=== PATIENT | female | born 1955 | race Caucasian/White ===

== ENCOUNTER 2023-08-04 11:26 | Outpatient (AMB) | payer MEDICARE, SELFPAY ==
--- NOTE | 2023-08-04 11:43 | A.OFFVIS_ITS ---
Intake Intake Visit Reasons: discuss sx Intake Note: pt here to discuss surgery Associate Research Scientist Required: No Assessment & Plan Assessment & Plan (1) Spondylolisthesis, lumbar region: Code(s): M43.16 - Spondylolisthesis, lumbar region (2) Lumbar stenosis with neurogenic claudication: Code(s): M48.062 - Spinal stenosis, lumbar region with neurogenic claudication Plan Dear colleague Thank you for referring Saloni Ricks to the office today with a chief complaint of predominantly back pain. HPI: This 68-year-old female was previously seen in our [facility] office on 07/14/2022 for low back pain radiating down the right leg, including the hip to thigh she was diagnosed with a 2 level lumbar spondylolisthesis and spinal stenosis. She had a right L5 transforaminal epidural steroid injection done in March 2022, anti-inflammatory drugs and physical therapy without success. We of fered her surgery but she decided to hold off. She returns to our new location with similar complaints which have further increased in intensity. The back pain is severe and can go down both posterior thighs. She developed the following additional symptoms: The left leg is giving out and she notice numbness and tingling in her feet since a couple months. The back pain increases with prolonged walking or standing. Gardening produces a further increase in pain in lower back. The following conservative treatment options were tried without success antiinflammatories, tylenol, physical therapy, home meds this, cortisone shots. PMH: COPD, hypertension, rotator cuff repair, cholecystectomy, left L4-5 laminotomy. Medications: Lisinopril, omeprazole, albuterol Allergies: NKDA Physical Exam: Pleasant female. Lumbar spine is painful with flexion extension. There is pain on palpation. Negative hip mechanical testing. Negative straight leg raise the. No motor deficits or sensory deficits. No pathological reflexes Radiological Studies: MRI of the lumbar spine done at [facility] on 03/06/2022 shows L3-4 and L4-5 lumbar spondylolisthesis with moderate to severe central spinal stenosis at these levels. A standing x-ray with flexion-extension shows a grade 1-2 spondylolisthesis at L3-4 and a grade 2 L4-5 spondylolisthesis that increases with flexion and increases in the standing position compared to the MRI. Impression/Plan: This 68-year-old female is suffering from severe low back pain interfering with her daily activities and not responding to conservative treatments. The pain also radiates into her legs with intermittent numbness and giving out of her left leg. Imaging reviews an L3-4 and L4-5 lumbar spondylolisthesis with associated moderate to severe spinal canal stenosis. Unfortunately, the vasculature does not allow me to perform either an anterior or oblique approach. The L3-4 level is suitable for an oblique lumbar interbody fusion. Therefore I offered her an L3-4 oblique lumbar interbody fusion to address the L3-4 spondylolisthesis with an indirect decompression of the central canal and an L4-5 transforaminal lumbar interbody fusion to reduce the L4-5 spondylolisthesis followed by posterior instrumentation L3-L5. The procedure and complications were explained in detail. The patient wants to proceed. Thank you for allowing me to participate in your patients care. total time spent was 50 minutes in counseling ,coordination of plan, personal review of imaging, surgical decision making and subsequent plan Mino Monet MD, PhD Spine Fellowship Trained Neurosurgeon Director, [facility] Coding Level of Care Code New Pt Level 4 (41813) Diagnoses Spondylolisthesis, lumbar region M43.16 Lumbar stenosis with neurogenic claudication M48.062
== END 2023-08-04 12:31 | disposition home or self-care (01) ==
PROVIDERS: PCP Family Medicine; Visit Provider Neurological Surgery
DX: M43.16 Spondylolisthesis, lumbar region (principal); M48.062 Spinal stenosis, lumbar region with neurogenic claudication
CPT/HCPCS: 99204

== ENCOUNTER → 2023-08-04 11:26 | Outpatient (BNVA) | payer MEDICARE, SELFPAY | PROVIDERS: PCP Family Medicine; Visit Provider Neurological Surgery ==

== ENCOUNTER 2024-02-29 07:08 | Inpatient (IN) | payer MEDICARE, SELFPAY ==
[2023-12-20 14:11] VITALS: BP 137/74; PULSE 68; RESP 16; O2SAT 97; BMI 23.1
--- NOTE | 2023-12-20 14:33 | HO.ANESPROP2 ---
Documented by User: Brittany Roberts NP 12/27/23 15:22 HPI - Anesthesia Eval Consult details Narrative: CXR done at [facility]. Abnormal reading. Reviewed by Dr Ng and not cleared for surgery. Needs to be re-evaluated. Rescheduled to 02/29/24 68yo F for L3-4 Oblique Lumbar Interbody Fusion, L4-5 Transkambin Lumbar Interbody Fusion - 12/27/23 PCP clearance pending No CP/SOB with couple hour walk weekly, and hills with . Some PARKER with large hill, but does not require albuterol. COPD/Asthma - URI in Sep 2023. Resolved except slight congestion. Trelegy daily. Rare albuterol. Follows [facility]. Cleared 08/2023 prior to illness. Recent w/u by PCP for palpitations. ECHO and stress OK. Holter showed brief runs of SVT. Rare palpitations reported by patient. Referred to cardiology. Will get clearance from PCP GERD - well controlled with ppi Tramadol daily. Rare oxycodone PMFSH Active Problems Active Problems: All Active Problems (Updated 10/20/23 @ 09:04 by Mariangel Wooten RN) Lumbar stenosis with neurogenic claudication (Acute) Spondylolisthesis, lumbar region (Acute) Past Medical History Medical History (Updated 12/20/23 @ 15:28 by Nicki Singh RN) History of palpitations Hx of supraventricular tachycardia Pulmonary nodule HTN (hypertension) GERD (gastroesophageal reflux disease) Back pain COPD (chronic obstructive pulmonary disease) Asthma Family History Family history of problems with anesthesia: No Surgical History Surgical History (Updated 10/20/23 @ 09:00 by Mariangel Wooten RN) Hx of repair of left rotator cuff Hx of lumbar discectomy Hx of repair of right rotator cuff History of esophagogastroduodenoscopy (EGD) History of repair of anterior cruciate ligament of left knee Hx of cholecystectomy H/O colonoscopy History of Problems with Anesthesia: No Social History Social History Are you a primary critical care transport nurse to a significant other at home: No Do you presently have visiting nurse or other home services: No Patient Tobacco Use Status: Former Tobacco user Quit Date: 12/06/2023 Tobacco use type: Cigarette Second Hand Smoke Exposure: No Use of substances other than those prescribed or required for medical reasons: Yes Substance Use Frequency: Occasionally Have you been hit, kicked, punched, or otherwise hurt by someone within the past year? If so, by whom?: No Are you DNR?: No Advance Directives: No Advance Directives Information Provided: Yes Advance Directives on File: No Recently lost weight without trying: No Nutrition Risks: No Nutritional Risk Meds Allergies Allergy/AdvReac Type Severity Reaction Status Date / Time Seasonal Allergies Allergy Intermediate hayfever Verified 12/20/23 14:29 symptoms Sulfa (Sulfonamide Allergy Intermediate Rash Verified 12/20/23 14:29 Antibiotics) Home Medications Medication Instructions Recorded Confirmed Last Taken Type albuterol sulfate 90 mcg/actuation 2 puff inhalation Q4H PRN wheezing 10/20/23 10/20/23 Unknown History aerosol inhaler fluticasone fur. 100 mcg-umeclid 1 ea inhalation DAILY 10/20/23 10/20/23 Unknown History 62.5 mcg-vilant 25 mcg inhalat.powder (Trelegy Ellipta) lisinopril 10 mg tablet 10 mg PO DAILY 10/20/23 10/20/23 Unknown History magnesium oxide 500 mg capsule 500 mg PO DAILY 10/20/23 10/20/23 Unknown History omeprazole 20 mg capsule,delayed 20 mg PO DAILY 10/20/23 10/20/23 Unknown History release oxycodone 5 mg tablet 5 mg PO Q8H PRN Pain 10/20/23 10/20/23 Unknown History tramadol 50 mg tablet 50 mg PO Q6H PRN Pain 10/20/23 10/20/23 Unknown History varenicline 1 mg tablet 1 mg PO BID 10/20/23 10/20/23 Unknown History amlodipine 5 mg tablet 5 mg PO DAILY 12/20/23 12/20/23 Unknown History Exam Height,Weight and Vital Signs: Height 5 ft 6 in Weight 64.864 kg Last Vital Signs Pulse 68 12/20/23 14:11 Resp 16 12/20/23 14:11 BP 137/74 12/20/23 14:11 Pulse Ox 97 12/20/23 14:11 O2 Del Method Room Air 12/20/23 14:11 Narrative Narrative: EKG 10/2023 SR @ 67 ECHO 11/2023 Nml LV size and function, EF 65% Nml RV size and function Nml diastolic function Trace mitral regurg Nml PA pressure estimate Exercise stress 10/2023 1. EKG - baseline EKG showed SR with nonspecific ST-T wave abn. During exercise there were no ischemic EKG changes that met criteria. 2. SYMPTOMS - No chest pain 3. EXERCISE PHYSIOLOGY - average/good functional capacity for age. BP 136/84 at rest. BP 230/120 during exercise, BP 158/84 on d/c from stress lab 4. ARRYTHMIAS - isolated PVCs with 4 beat run of ventricular bigeminy Conclusion - there were no EKG changes suggestive of ischemia or symptoms concerning for angina Airway Loose/Missing/Broken Teeth: Yes (~#11 pulled recently, 1 x molar crowned lower right slightly loose) Heart: RRR Lungs: Dim throughout Assessment and Plan Assessment Anesthesia Assessment: Anesthesia Plan Discussed and PAT Visit Final Anesthetic Review Family History of Problems with Anesthesia: No History of Problems with Anesthesia: No Documented by User: Heri Penn MD 01/03/24 09:36 HPI - Anesthesia Eval Consult details Narrative: CXR done at [facility]. Abnormal reading. Reviewed by Dr Ng and not cleared for surgery. Needs to be re-evaluated. Rescheduled to 02/29/24. Thanks. 68yo F for L3-4 Oblique Lumbar Interbody Fusion, L4-5 Transkambin Lumbar Interbody Fusion - 12/27/23 PCP clearance pending No CP/SOB with couple hour walk weekly, and hills with . Some PARKER with large hill, but does not require albuterol. COPD/Asthma - URI in Sep 2023. Resolved except slight congestion. Trelegy daily. Rare albuterol. Follows [facility]. Cleared 08/2023 prior to illness. Recent w/u by PCP for palpitations. ECHO and stress OK. Holter showed brief runs of SVT. Rare palpitations reported by patient. Referred to cardiology. Will get clearance from PCP GERD - well controlled with ppi Tramadol daily. Rare oxycodone PMFSH Past Medical History Medical History (Updated 02/26/24 @ 15:28 by Nicki Singh RN) History of palpitations Hx of supraventricular tachycardia Pulmonary nodule HTN (hypertension) GERD (gastroesophageal reflux disease) Back pain COPD (chronic obstructive pulmonary disease) Asthma Surgical History Surgical History (Updated 10/20/23 @ 09:00 by Mariangel Wooten RN) Hx of repair of left rotator cuff Hx of lumbar discectomy Hx of repair of right rotator cuff History of esophagogastroduodenoscopy (EGD) History of repair of anterior cruciate ligament of left knee Hx of cholecystectomy H/O colonoscopy Social History Social History Are you a primary critical care transport nurse to a significant other at home: No Do you presently have visiting nurse or other home services: No Patient Tobacco Use Status: Former Tobacco user Quit Date: 12/06/2023 Tobacco use type: Cigarette Second Hand Smoke Exposure: No Use of substances other than those prescribed or required for medical reasons: Yes Substance Use Frequency: Occasionally Have you been hit, kicked, punched, or otherwise hurt by someone within the past year? If so, by whom?: No Are you DNR?: No Advance Directives: No Advance Directives Information Provided: Yes Advance Directives on File: No Recently lost weight without trying: No Nutrition Risks: No Nutritional Risk Meds Allergies Allergy/AdvReac Type Severity Reaction Status Date / Time Seasonal Allergies Allergy Intermediate hayfever Verified 12/20/23 14:29 symptoms Sulfa (Sulfonamide Allergy Intermediate Rash Verified 12/20/23 14:29 Antibiotics) Home Medications Medication Instructions Recorded Confirmed Last Taken Type albuterol sulfate 90 mcg/actuation 2 puff inhalation Q4H PRN wheezing 10/20/23 10/20/23 Unknown History aerosol inhaler fluticasone fur. 100 mcg-umeclid 1 ea inhalation DAILY 10/20/23 10/20/23 Unknown History 62.5 mcg-vilant 25 mcg inhalat.powder (Trelegy Ellipta) lisinopril 10 mg tablet 10 mg PO DAILY 10/20/23 10/20/23 Unknown History magnesium oxide 500 mg capsule 500 mg PO DAILY 10/20/23 10/20/23 Unknown History omeprazole 20 mg capsule,delayed 20 mg PO DAILY 10/20/23 10/20/23 Unknown History release oxycodone 5 mg tablet 5 mg PO Q8H PRN Pain 10/20/23 10/20/23 Unknown History tramadol 50 mg tablet 50 mg PO Q6H PRN Pain 10/20/23 10/20/23 Unknown History varenicline 1 mg tablet 1 mg PO BID 10/20/23 10/20/23 Unknown History amlodipine 5 mg tablet 5 mg PO DAILY 12/20/23 12/20/23 Unknown History
--- NOTE | 2024-02-28 09:58 | HO.ANESPROP2 ---
Documented by User: Brittany Roberts NP 02/28/24 11:06 HPI - Anesthesia Eval Consult details Narrative: 69yo F for L3-4,L4-5 Transkambin Lumbar Interbody Fusion Pulmo cleared Stable by 01/2024 cardiac eval COPD/Asthma - URI in Sep 2023. Resolved except slight congestion. Trelegy daily. Rare albuterol. Follows [facility]. Cleared 08/2023 prior to illness. Recent w/u by PCP for palpitations. ECHO and stress OK. Holter showed brief runs of SVT. Rare palpitations reported by patient. Seen by cardiology 01/2024. Stable except some palps (PACs, PVCs, short runs SVT and no rx indicated) GERD - well controlled with ppi Tramadol daily. Rare oxycodone 12/2023 CXR at [facility] PAT abnormal. Started on daliresp. Repeat [employer]UD[employer] PROFESS[employer] 02/22/24 (per pulmo clearance note) = clear lungs, with no effusions PMFSH Active Problems Active Problems: All Active Problems Lumbar stenosis with neurogenic claudication (Acute) Spondylolisthesis, lumbar region (Acute) Past Medical History Medical History Elevated cholesterol History of palpitations Hx of supraventricular tachycardia Pulmonary nodule HTN (hypertension) GERD (gastroesophageal reflux disease) Back pain COPD (chronic obstructive pulmonary disease) Asthma Family History Family history of problems with anesthesia: No Surgical History Surgical History Hx of repair of left rotator cuff Hx of lumbar discectomy Hx of repair of right rotator cuff History of esophagogastroduodenoscopy (EGD) History of repair of anterior cruciate ligament of left knee Hx of cholecystectomy H/O colonoscopy History of Problems with Anesthesia: No Social History Social History Are you a primary director of healthcare systems to a significant other at home: No Do you presently have visiting nurse or other home services: No Patient Tobacco Use Status: Former Tobacco user Quit Date: 3 weeks Tobacco use type: Cigarette Second Hand Smoke Exposure: No Use of substances other than those prescribed or required for medical reasons: No Substance Use Frequency: Occasionally Have you been hit, kicked, punched, or otherwise hurt by someone within the past year? If so, by whom?: No Are you DNR?: No Advance Directives: No Advance Directives Information Provided: Yes Advance Directives on File: No Recently lost weight without trying: No Nutrition Risks: No Nutritional Risk Meds Allergies Allergy/AdvReac Type Severity Reaction Status Date / Time Seasonal Allergies Allergy Intermediate hayfever Verified 02/29/24 07:26 symptoms Sulfa (Sulfonamide Allergy Intermediate Rash Verified 02/29/24 07:26 Antibiotics) Home Medications ?Medication ?Instructions ?Recorded ?Confirmed ?Last Taken ?Type albuterol sulfate 90 mcg/actuation 2 puff inhalation Q4H PRN wheezing 10/20/23 10/20/23 Unknown History aerosol inhaler fluticasone fur. 100 mcg-umeclid 1 ea inhalation DAILY 10/20/23 02/29/24 02/29/24 History 62.5 mcg-vilant 25 mcg inhalat.powder (Trelegy Ellipta) lisinopril 10 mg tablet 10 mg PO DAILY 10/20/23 02/29/24 02/29/24 History omeprazole 20 mg capsule,delayed 20 mg PO DAILY 10/20/23 10/20/23 Unknown History release oxycodone 5 mg tablet 5 mg PO Q8H PRN Pain 10/20/23 02/29/24 02/28/24 History tramadol 50 mg tablet 50 mg PO Q6H PRN Pain 10/20/23 02/29/24 02/28/24 History varenicline 1 mg tablet 1 mg PO BID 10/20/23 10/20/23 02/29/24 History amlodipine 5 mg tablet 5 mg PO DAILY 12/20/23 02/29/24 02/29/24 History roflumilast 250 mcg tablet 250 mcg PO DAILY 02/15/24 02/29/24 02/29/24 History rosuvastatin 20 mg tablet 20 mg PO DAILY 02/15/24 02/29/24 02/29/24 History Exam Height,Weight and Vital Signs: Height 5 ft 6 in Weight 64.864 kg Last Vital Signs Pulse 68 12/20/23 14:11 Resp 16 12/20/23 14:11 BP 137/74 12/20/23 14:11 Pulse Ox 97 12/20/23 14:11 O2 Del Method Room Air 12/20/23 14:11 Pertinent Lab Results Pertinent Lab Results: CBC and BMP from outside facility 10/2023 WNL Narrative Narrative: CXR 02/22/24 No acute findings EKG 10/2023 SR @ 67 ECHO 11/2023 Nml LV size and function, EF 65% Nml RV size and function Nml diastolic function Trace mitral regurg Nml PA pressure estimate Exercise stress 10/2023 1. EKG - baseline EKG showed SR with nonspecific ST-T wave abn. During exercise there were no ischemic EKG changes that met criteria. 2. SYMPTOMS - No chest pain 3. EXERCISE PHYSIOLOGY - average/good functional capacity for age. BP 136/84 at rest. BP 230/120 during exercise, BP 158/84 on d/c from stress lab 4. ARRYTHMIAS - isolated PVCs with 4 beat run of ventricular bigeminy Conclusion - there were no EKG changes suggestive of ischemia or symptoms concerning for angina Airway Loose/Missing/Broken Teeth: Yes (~#11 pulled recently, 1 x molar crowned lower right slightly loose) Heart: RRR Lungs: Dim throughout Assessment and Plan Assessment Anesthesia Assessment: Chart Reviewed (PAT 11/2023 before reschedule) Final Anesthetic Review Family History of Problems with Anesthesia: No History of Problems with Anesthesia: No Documented by User: Edi Smith MD 02/29/24 10:40 PENDING SALE TO [facility] Past Medical History Medical History Elevated cholesterol History of palpitations Hx of supraventricular tachycardia Pulmonary nodule HTN (hypertension) GERD (gastroesophageal reflux disease) Back pain COPD (chronic obstructive pulmonary disease) Asthma Surgical History Surgical History Hx of repair of left rotator cuff Hx of lumbar discectomy Hx of repair of right rotator cuff History of esophagogastroduodenoscopy (EGD) History of repair of anterior cruciate ligament of left knee Hx of cholecystectomy H/O colonoscopy Social History Social History Are you a primary director of healthcare systems to a significant other at home: No Do you presently have visiting nurse or other home services: No Patient Tobacco Use Status: Former Tobacco user Quit Date: 3 weeks Tobacco use type: Cigarette Second Hand Smoke Exposure: No Use of substances other than those prescribed or required for medical reasons: No Substance Use Frequency: Occasionally Have you been hit, kicked, punched, or otherwise hurt by someone within the past year? If so, by whom?: No Are you DNR?: No Advance Directives: No Advance Directives Information Provided: Yes Advance Directives on File: No Recently lost weight without trying: No Nutrition Risks: No Nutritional Risk Meds Allergies Allergy/AdvReac Type Severity Reaction Status Date / Time Seasonal Allergies Allergy Intermediate hayfever Verified 02/29/24 07:26 symptoms Sulfa (Sulfonamide Allergy Intermediate Rash Verified 02/29/24 07:26 Antibiotics) Home Medications ?Medication ?Instructions ?Recorded ?Confirmed ?Last Taken ?Type albuterol sulfate 90 mcg/actuation 2 puff inhalation Q4H PRN wheezing 10/20/23 10/20/23 Unknown History aerosol inhaler fluticasone fur. 100 mcg-umeclid 1 ea inhalation DAILY 10/20/23 02/29/24 02/29/24 History 62.5 mcg-vilant 25 mcg inhalat.powder (Trelegy Ellipta) lisinopril 10 mg tablet 10 mg PO DAILY 10/20/23 02/29/24 02/29/24 History omeprazole 20 mg capsule,delayed 20 mg PO DAILY 10/20/23 10/20/23 Unknown History release oxycodone 5 mg tablet 5 mg PO Q8H PRN Pain 10/20/23 02/29/24 02/28/24 History tramadol 50 mg tablet 50 mg PO Q6H PRN Pain 10/20/23 02/29/24 02/28/24 History varenicline 1 mg tablet 1 mg PO BID 10/20/23 10/20/23 02/29/24 History amlodipine 5 mg tablet 5 mg PO DAILY 12/20/23 02/29/24 02/29/24 History roflumilast 250 mcg tablet 250 mcg PO DAILY 02/15/24 02/29/24 02/29/24 History rosuvastatin 20 mg tablet 20 mg PO DAILY 02/15/24 02/29/24 02/29/24 History Exam Airway Mallampati Class: II TM Dist: >3cm Neck ROM: Full Assessment and Plan Assessment Anesthesia Assessment: Anesthesia Plan Discussed Final Anesthetic Review NPO: Yes ASA Class: III Final Preanesthetic Review: No Changes in Pt Med Stat, Meds/Allgs Chart Reviewed, Consent Obtained/Reviewed and Anes Risks/Benef Reviewed Patient Risk: Intermediate Procedure Risk: Intermediate Anesthetic Plan Anesthetic Plan: GA Disposition: Standard PACU
[2024-02-29] VITALS (15 sets, daily range): BP systolic 107–150; BP diastolic 54–76; PULSE 60–87; RESP 12–26; TEMP 35.8–36.4; O2SAT 94–100; BMI 22.6
--- NOTE | ~2024-02-29 | XR_ITS ---
EXAMINATION: XR CHEST CLINICAL INFORMATION: Preop. COMPARISON: None available. TECHNIQUE: 2 views of the chest were obtained. FINDINGS: The lungs are well inflated. Degenerative changes in the thoracic spine. Cardiac silhouette within normal limits in size. Prominence of the bilateral jose luis with bilateral perihilar upper and lower lung streaky opacities, upper lobe predominant. Minimal blunting of the posterior sulci may represent trace pleural effusions versus pleural thickening. Two devices each project over the bilateral humeral heads. XR/XR chest 2V IMPRESSION: Prominence of the bilateral jose luis with bilateral perihilar upper and lower lung streaky opacities, upper lobe predominant. Minimal blunting of the posterior sulci may represent trace pleural effusions versus pleural thickening. Differential considerations include chronic pulmonary disease with prominent central vascularity and possible associated scar/atelectasis and/or bronchiectatic and chronic interstitial change. Associated infectious/inflammatory process should also be considered. Direct correlation with prior images is recommended and if prior images are provided, an addendum will be dictated. In the absence of prior images, CT scan is recommended for further evaluation. This study was presented today, 12/21/2023, for interpretation. PSA staff will provide results to referring provider at this time.
--- NOTE | ~2024-02-29 | FL_ITS ---
EXAMINATION: XR FLUOROSCOPY WITH IMAGES CLINICAL INFORMATION: L3-L4 and L4-L5 transforaminal lumbar interbody fusions. COMPARISON: None available. TECHNIQUE: IMAGE 1: Fluoroscopy Supervised By: Dr. Irineo Monet. Fluoroscopy Time: 2 minutes and 40.9 seconds. Cumulative Dose: 68.040 mGy. DAP: 27.476 Gycm2. IMAGE 2: Fluoroscopy Supervised By: Dr. Irineo Monet. Fluoroscopy Time: 1.0 minutes. Cumulative Dose: 36.2 mGy. DAP: 8.03 Gycm2. FINDINGS: The submitted images show a fixator rods, pedicular screws and disc spacers related to L3-L4 and L4-L5 transforaminal lumbar interbody fusions. FL/FL guidance in OR IMPRESSION: Intraoperative fluoroscopic guidance is provided during L3-L4 and L4-L5 transforaminal lumbar interbody fusions. Please see the patient's Operative Report for full procedural details.
--- NOTE | ~2024-02-29 | XR_ITS ---
EXAMINATION: XR LUMBOSACRAL SPINE WITH OBLIQUES CLINICAL INFORMATION: Status post lumbar fusion L3-S1, patient currently admitted comminuted x-rays to evaluate surgical construct placement, postop. COMPARISON: 02/29/2024 fluoroscopy guidance in OR. TECHNIQUE: AP, lateral neutral, flexion and extension views of the lumbar spine. FINDINGS: Surgical clips in the right upper quadrant. Degenerative changes in the bilateral sacroiliac joints. Mild levoscoliosis of the lumbar spine. Posterior fixation hardware is demonstrated within fixator rods, pedicular screws, and disc spacers spanning L3-L4-L5 levels. Grade 1 anterolisthesis of L3 on L4 with flexion and extension. Grade 1 anterolisthesis of L4 on L5 with flexion and extension. Hardware appears intact. Advanced degenerative changes at L5-S1 with loss of disc space height and hypertrophic change. XR/XR lumbar spine 4V min IMPRESSION: 1. Posterior fixation hardware spanning L3-L4-L5 levels. Hardware appears intact. 2. Grade 1 anterolisthesis of L3 on L4, and of L4 on L5 with flexion and extension. 3. Advanced degenerative disc disease at L5-S1. This study was presented today 03/01/2024 for interpretation. Prompt priority results supplied at this time to the referring provider as requested by the provider.
--- NOTE | 2024-02-29 07:02 | MHC.SHP ---
Pre-Procedural Eval Section A - 24 Hr Update-Section A only Date of Service: 02/29/24 The patient is an INPATIENT: No Changes since office visit: No Cold of Flu in the past 2 weeks, No New Medical Problems, No Changes in Medication and No Patient answered all questions The patient has been examined within 24 hours of the surgical procedure. The History & Physical has been completed within 30 days and I have reviewed it.: No Section B - Complete if H&P > 30 days Chief Complaint: Spinal stenosis, lumbar region,Spondylolisthesis, Allergies: Allergies Allergy/AdvReac Type Severity Reaction Status Date / Time Seasonal Allergies Allergy Intermediate hayfever Verified 12/20/23 14:29 symptoms Sulfa (Sulfonamide Allergy Intermediate Rash Verified 12/20/23 14:29 Antibiotics) Review of Systems Sugical H&P ROS: Negative: Constitution, Cardiovascular, Respiratory, Neurological, Psychiatric, Hem-Onc, Allergic/Immunologic, Gastrointestinal, Genitourinary, Musculoskeletal, Integumentary, Endocrine and Eyes/Ears/Nose/Throat Exam Surgical H&P Exam: Not Evaluated: HEENT, Not Evaluated: Heart, Not Evaluated: Lungs, Not Evaluated: Extremities, Not Evaluated: Abdomen, Not Evaluated: Skin and Not Evaluated: Neurological Plan Diagnosis/Plan: Unchanged L3-4, L4-5 transkambin interbody fusion Time Spent With Patient Time: Total time managing care of this patient today _3___ minutes.
[2024-02-29] MEDS: Albuterol Sulfate (0.083%) 2.5 MG/3 ML VIAL.NEB INHALE (07:16)
[2024-02-29] MEDS: Gabapentin 300 MG CAPSULE PO ×2 (07:20→15:05)
[2024-02-29] MEDS: methocarbamoL 750 MG TABLET PO (07:21)
[2024-02-29] MEDS: Lactated Ringers 1,000 ML 100 ML IVCONT (07:21)
--- NOTE | 2024-02-29 07:25 | PHA.MEDREC ---
Pharmacy Consult ? Medication Reconciliation Pharmacy has completed the medication reconciliation. Reviewed med rec done by nursing
--- NOTE | 2024-02-29 12:15 | W.PM.OPN ---
Operative Note Operative Note Date of Service: 02/29/24 Narrative: Preoperative diagnosis: 1) L3-4 and L4-5 lumbar spondylolisthesis Postprocedure diagnosis: 1) same as above Procedure: 1) L3-4 and L4-5 oblique lateral lumbar interbody fusion with discectomy, preparation of the endplates and placement of a titanium bullet cage packed with allograft, anterior to the transverse process in modified prone position, with intraoperative biplanar fluoroscopy imaging and electrophysiological monitoring 2) L3-L5 posterior minimally invasive pedicle screw placement and posterior lateral instrumentation and fusion with intraoperative biplanar fluoroscopic imaging and electrophysiological monitoring 3) injection of 10 cc of Exparel at the bilateral L4 transverse processi for a muscular erector spinae block and additional Exparel in paravertebral tissue for postop management Consent Informed Consent was obtained for this operation. I have explained the nature, purpose and benefits of the operation. I have discussed the risks and benefit of the operation including possible complications or adverse events with patient/family. Alternative(s) were discussed with the patient with their relative benefits and risks as well as the consequences of not accepting the operation were included in obtaining consent. Surgeon: CORDELIA TAVERA MD, PHD Procedure Assisted By: Junior Mccray, Description of Procedure: This is a complex surgery on the lumbar spine and an housing assistant property manager as needed for safety of the surgery for setup of instrumentation, retraction and closing. History: This 69-year-old female is having back pain and bilateral leg pain. MRI shows a grade 1-2 spondylolisthesis at L3-4 and L4-5 with associated spinal stenosis. The patient was offered an oblique lumbar lateral interbody fusion followed by a posterior lateral instrumented fusion L3-L5. The procedure and complications were explained and the patient was consented. Procedure: The patient was brought to the operating room and endotracheally intubated. The patient was positioned on the Binu spine table in a modified prone position for ease of access from the left side.. 2C arms were installed for fluoroscopy. Prepping and draping was done followed by timeout. The landmarks, including spinal processes, transverse processes, disc space, endplates and pedicles are identified and marked. First Exparel was injected over the bilateral L4 transverse processes under fluoroscopic guidance to provide a muscular erector spinae block. The following steps are taken for each specified level: L3-4 level: Cage size 11 mm high and 27 mm long titanium . L4-5 level: Cage size 11 mm high and 30 mm long titanium The patient was turned using the rotation of the surgical table so a near direct anterior lateral approach to the lumbar spine could be achieved. A small incision was then made superior to the mid iliac crest and then using biplanar fluoroscopy visualization, under electrophysiological monitoring and stimulation, we introduced an electrophysiological probe through the retroperitoneal space into the desired disc anterior to the transverse process and then passed it into the disc space after finding a silent window. The sleeve was retained and the probe was removed, then the K wire was passed sequentially into the disc space. A dilating tube was then passed along the same route. Following this, a working channel, a working channel was then passed sequentially into the disc space. The working channel was manually held in position while a series of disc cleaning tools were passed through the channel to remove the affected disc under clear and direct biplanar fluoroscopic visualization, decompress the nerve roots and equal corticated vertebral endplates at this segment. Arthrodesis of the intervertebral space via an anterior retroperitoneal exposure was achieved through K[place] and lateral extraforaminal space. Allograft was added into the anterior disc space. The working channel was then removed. A titanium interbody cage tightly packed with allograft was then inserted into the midportion of the intervertebral disc space over a K-wire under biplanar fluoroscopic visualization and intraoperative neuro monitoring. The inter pedicular and intradiscal space was significantly enlarged and disc height was restored to worked normal anatomy there for releasing pressure on the nerve roots visual largely the spinal canal and lateral recess as well as foramen were bilateral decompressed and all bones were confined to the borders of the disc space . The following steps are then taken for each specified level: L3-L5 levels: Bilateral L3, L4 and L5 with a diameter of 6.5 x 45 mm. A total of 6 pedicle screws from [employer] were placed. The posterolateral fusion is initiated after the patient is rotated to a true prone position. The entry point to the pedicle is identified in the AP and lateral views and then the skin incision is injected with local anesthetic. We entered the pedicle with the pediguard tap after which a K-wire was introduced into the vertebral body. Additionally, I used a small periosteal decorticator along the screws to refresh the surface of the bone and facet and I put some amount of allograft for additional stability for the posterolateral fusion. Over the K-wire we insert pedicle screws bilaterally. After the screws were placed, we put the julia in place and under fluoroscopic imaging, we locked the julia in place and removed the screw tops and then each incision has been closed with 0 Vicryl for the fascia and a 3-0 Vicryl for the subdermal layer. Steri-Strips were used to approximate the incisions. An OpSite with Tegaderm was used to cover the incision. Final x-rays and AP and lateral projection showed good position of the interbody device and instrumentation. All sponge and needle counts were correct. The patient was extubated and transported in a stable condition to the recovery room. 2-0 Vicryl This procedure was done with the aid of a physician housing assistant property manager as a qualified resident was not available. Anesthesia: General Estimated Blood Loss (ml): 25 mL Specimen: None Duration of Surgery: 1 hour 40 minutes Postoperative Plan: Admit to inpatient
[2024-02-29] MEDS: HYDROmorphone HCl 0.5 MG/0.5 ML SYRINGE 0.25 MG IVPUSH ×2 (13:45→13:50)
[2024-02-29] MEDS: hydrOXYzine HCL 25 MG TABLET PO (15:05)
[2024-02-29] MEDS: Acetaminophen 1,000 MG/100 ML PIGGYBACK 400 MG IV ×2 (15:11→20:48)
[2024-02-29] MEDS: 0.9 % Sodium Chloride 1,000 ML 75 ML IVCONT (15:26)
[2024-02-29] MEDS: Ketorolac Tromethamine 15 MG/ML VIAL IVPUSH ×2 (15:48→22:06)
[2024-02-29] MEDS: ceFAZolin Sodium/Dextrose,Iso 2 GM/50 ML PIGGYBACK IV ×2 (15:49→22:06)
[2024-03-01] VITALS (7 sets, daily range): BP systolic 126–158; BP diastolic 66–79; PULSE 76–90; RESP 16–18; TEMP 36.8–37.1; O2SAT 93–97
[2024-03-01] MEDS: Acetaminophen 1,000 MG/100 ML PIGGYBACK 400 MG IV ×4 (02:15→20:32)
[2024-03-01] MEDS: ceFAZolin Sodium/Dextrose,Iso 2 GM/50 ML PIGGYBACK IV (03:53)
[2024-03-01] MEDS: 0.9 % Sodium Chloride 1,000 ML 75 ML IVCONT ×2 (04:51→20:43)
--- NOTE | 2024-03-01 06:59 | HO.NEURO.PN ---
Neurosurgery Operative Note Date of Service: 03/01/24 Narrative: POD: 1 Procedure: L3-4, L4-5 Yash Guallpa was seen today sitting in her bed on 3-. She feels her symptoms are improved compared to pre-operatively, however still reports moderate low back pain, with good relief with pain medication. She does report the low back pain wraps around into / near her lateral abdomen, which may simply be a radicular pain from the dermatome near the incision site. She reports no pain in her bilateral thighs and no lower extremity radiculopathy. She is voiding well using the bedside commode but has not yet ambulated to the bathroom. Has not yet seen PT. Unfortunately, she has been unable to tolerate a solid food diet due to her self-reported medical history of a Schatzki ring. Instead, she has been eating pudding, oatmeal, yogurt, and some softer fruits (bananas). She states she has largely been unable to tolerate p.o. medication. Afebrile, vital signs stable. Full strength 5/5 LE. No new neurological deficits. Abdomen soft and non-tender. Back dressings have some staining without signs of hematoma. Area is dry. Plan: We ordered a set of standing X-rays which showed stable palcement of her surgical constuct. We discussed the possibility of the patient crushing medications (and/or emptying capsules like Gabapentin / Hydroxyzine) to take with pudding/yogurt at home. She is agreeable to this and states she will follow up with her outpatient mold swabber for dilation of her Schatzki ring which she has had to do several times in the past. Additionally, she requested we sent her home with Dilaudid versus oxycodone when we do discharge her as she does not have in his many adverse symptoms from Dilaudid and feels it works better. We will keep her another night to monitor her I/O and await PT eval. She is aware she will be most likely cleared for discharge in the morning and is planning to set up transportation home from her family for around noon tomorrow. Adolfo Monet MD,PhD [facility]
--- NOTE | 2024-03-01 07:01 | PM.DS ---
DS: Providers Provider Date of Service: 03/02/24 Date of admission: 02/29/24 07:08 Primary care physician: Joe Cho MD DS: Summary Time Attestation Discharge Coordination Time (in mins): 30 Quality: Safe Use of Opioids Does Pt have an Active Cancer Diagnosis on the Problem List?: No Quality: Stroke Does the patient have a stroke diagnosis?: No Physical Exam Vital Signs: Vital Signs: Last Vital Signs Temp 98.2 F 03/01/24 03:03 Pulse 76 03/01/24 03:03 Resp 18 03/01/24 03:03 BP 145/75 H 03/01/24 03:03 Pulse Ox 93 03/01/24 03:03 O2 Del Method Room Air 03/01/24 03:03 O2 Flow Rate 2 02/29/24 13:30 BMI result Body Mass Index 22.6 DS: Data Data Completed and Pending Labs on day of discharge: Laboratory Results - last 24 hr 02/29/24 08:12 Blood Type A Positive Antibody Screen NEGATIVE Discharge Plan Discharge Anticipated Discharge Date/Time: 03/01/24 07:01 Patient Disposition: Home, Self-Care Discharge Diagnosis: s/p L3-S1 Transkambin Referrals: Joe Cho MD [Primary Care Provider] - 1 Week Discharge Medications: New hydromorphone 2 mg tablet 2 mg PO Q6H Qty: 30 0RF Rx Instructions: Partial Fill upon patient request. hydroxyzine HCl 25 mg tablet 25 mg PO TID Qty: 30 0RF gabapentin 300 mg capsule 300 mg PO TID Qty: 30 0RF cyclobenzaprine 5 mg tablet 5 mg PO TID PRN (Reason: muscle spasms) Qty: 30 0RF Continued lisinopril 10 mg tablet 10 mg PO DAILY omeprazole 20 mg capsule,delayed release(DR/EC) 20 mg PO DAILY albuterol sulfate 90 mcg/actuation HFA aerosol inhaler 2 puff INHALATION Q4H PRN (Reason: wheezing) varenicline 1 mg tablet 1 mg PO BID Trelegy Ellipta 100-62.5-25 mcg blister with device 1 ea INHALATION DAILY amlodipine 5 mg tablet 5 mg PO DAILY rosuvastatin 20 mg tablet 20 mg PO DAILY roflumilast 250 mcg tablet 250 mcg PO DAILY Held tramadol 50 mg tablet 50 mg PO Q6H PRN (Reason: Pain) Hold Instructions: Resume on 03/02/24. Until Dilaudid Rx is complete oxycodone 5 mg tablet 5 mg PO Q8H PRN (Reason: Pain) Hold Instructions: Resume on 04/02/24. Until Dilaudid Rx is complete Discharge Orders: Discharge Order (Routine); Ordered 03/02/24 Ordered By: Adolfo Gallagher Diet: Advance to usual diet Activity on Discharge: As tolerated Stand Alone Forms: Patient Portal Discharge page Print Language: Citizen Of [place] Activity Restrictions/Additional Instructions: After your spinal surgery we ask you to observe the following restrictions/guidelines: Activity: With lumbar fusion surgery it is normal to have days in the first couple of weeks where you have increased leg pain. This usually lasts 1-2 days and self resolves with the continuation of medication. Attempt to stay mobile and continue activity as tolerated. It is normal with this surgery to have some pain in your thigh. This will resolve on it's own in the coming weeks. It is because of the surgical approach. It is normal to feel some discomfort as you increase your activity, but that will improve with time. We ask you avoid heavy lifting or activities that cause pain. As a general rule, 8lbs is a safe limit for lifting right after surgery. Walk as much as you feel comfortable but not to exhaustion. You will feel extra tired the first few days after surgery. Stay well hydrated. It is OK to walk up and down stairs You may return to driving when you are off narcotics (such as vicodin, oxycodone, dilaudid, etc), and you are back to normal functional capacity. If you have any concerns please check with office before driving. Return to work is specific to each patient and each surgery, so please speak with your doctor/PA at first follow up. Please bring paperwork such as FMLA at that time if you need it filled out. Medications: It is recommended that you take Tylenol 500 mg every 4 hours for the 1st week postoperatively,?alongside ibuprofen 600 mg every 8 hours. We will also be prescribing gabapentin 300 mg to be taken 3 times daily, and Hydroxyzine 25mg to be taken 3 times daily. Additionally we will be prescribing Cyclobenzaprine 5mg to be taken 3 times daily as needed for muscle spasms in your back. We will give you a short supply of narcotics after surgery (usually one weeks worth). ??Please use this for breakthrough pain that is refractory to the Tylenol ibuprofen and gabapentin. If you need more please call the office but do not use more than prescribed. You will need to give our office 48 hours notice if you need narcotics refilled and we do not fill narcotics on weekends or evenings. If you are on a narcotic, it is a good idea to take a stool softener such as colace or senna to avoid constipation If you take blood thinner such as aspirin, Plavix, Coumadin, Effient, Eliquis etc for conditions such as Afib, DVT, Pulmonary embolus, coronary disease, stents etc please speak with your surgeon about specific details as to when you can resume these medications. You can resume NSAIDs on post op day 1 (eg: Motrin, Naproxen, etc). Follow up: Please call the office, , after surgery to arrange a 3 week follow up for wound check. Wound Care: You may remove your dressing on the first day after surgery. ?You may ?leave open to air. Please do not remove the steri strips underneath. they will fall off on their own in one week. IT IS NORMAL FOR THE WOUND TO OOZE OR BE BLOODY FOR A FEW DAYS AFTER SURGERY. ?IF THIS HAPPENS JUST PLACE NEW DRESSING OVER IT TO AVOID STAINING CLOTHES. You may shower on post op day # 1 We ask that you do not let the water soak the wound. If it does get wet, just towel dry lightly. Please do not scrub your incision or place any type of chemical/ointment on the wound. No tub baths, pools or jacuzzis for one month. If you have any leaking or redness from your wound, or fevers, please call office Care Plan Goals: Return to normal activity as tolerated Health Concerns: None Plan of Treatment: Follow-up in clinic in 2-3 weeks Assessment: Procedure: L3-4, L4-5 Transkambin
[2024-03-01] MEDS: Fluticasone/Umeclidinium/Vilanterol 100/62.5/25 BLST.W.DEV 1 PUFF INHALE (07:48)
[2024-03-01] MEDS: Ketorolac Tromethamine 15 MG/ML VIAL IVPUSH ×3 (07:54→20:37)
[2024-03-01] MEDS: Omeprazole 20 MG CAPSULE.DR PO (07:59)
[2024-03-01] MEDS: amLODIPine Besylate 5 MG TABLET PO (08:00)
[2024-03-01] MEDS: lisinopriL 10 MG TABLET PO (08:00)
[2024-03-01] MEDS: Gabapentin 300 MG CAPSULE PO ×3 (08:01→20:37)
--- NOTE | 2024-03-01 08:36 | MHC.CM.PN ---
pt dcd home self care
[2024-03-01] MEDS: HYDROmorphone HCl 1 MG/ML SYRINGE IVPUSH ×3 (08:42→20:36)
--- NOTE | 2024-03-01 09:10 | HO.POSTANES ---
Post Anesthesia Evaluation Post Anesthesia Evaluation Date of Service: 02/29/24 Vital Signs: Vital Signs Temp Pulse Resp BP Pulse Ox O2 Del Method 03/01/24 08:00 158/79 H 03/01/24 08:00 158/79 H 03/01/24 07:49 88 18 03/01/24 07:00 98.3 F 88 18 158/79 H 93 Room Air 03/01/24 03:03 98.2 F 76 18 145/75 H 93 Room Air Anesthesia: General Endotracheal-GETA Mental Status: Awake Pain Control: Satisfactory Nausea/Vomiting: None Hydration: Adequate Anesthesia-Related Issues: No Anes. Related Issues
--- NOTE | 2024-03-01 09:36 | MHC.CM.PN ---
pt lives with is independent has a ride home not expecvtyed to need servies when dcd dc plan home no servies
[2024-03-01] MEDS: hydrOXYzine HCL 25 MG TABLET PO ×2 (15:05→20:37)
[2024-03-02 03:22] VITALS: BP 152/76; PULSE 88; RESP 16; TEMP 36.2; O2SAT 95
[2024-03-02] MEDS: Ketorolac Tromethamine 15 MG/ML VIAL IVPUSH ×2 (03:25→09:46)
[2024-03-02] MEDS: Acetaminophen 1,000 MG/100 ML PIGGYBACK 400 MG IV ×2 (03:25→09:43)
[2024-03-02] MEDS: HYDROmorphone HCl 1 MG/ML SYRINGE IVPUSH ×2 (03:51→07:46)
[2024-03-02 07:15] VITALS: BP 147/75; PULSE 82; RESP 18; TEMP 36.2; O2SAT 95
[2024-03-02] MEDS: Fluticasone/Umeclidinium/Vilanterol 100/62.5/25 BLST.W.DEV 1 PUFF INHALE (07:56)
[2024-03-02 08:34] VITALS: BP 147/75; PULSE 82; O2SAT 95
--- NOTE | 2024-03-02 09:09 | W.MHC.F2F ---
Service Date Service Date: 03/02/24 Encounter Date of encounter: 03/02/24 Reasons for Services Signs and symptoms assessed: s/p L3-4 Transkambin lumbar fusion Reason for senior living: medication management, medication treatment and GI/ assessment Reason for physical therapy: home safety and mobility, therapeutic exercises, gait/transfer training, ADL training and energy conservation Homebound: Leaving the home is medically contraindicated at this time without the asist of a device and/or another person due th the listed conditions above and below. Reason homebound: unsteady gait / fall risk, leg weakness, pain with ambulation, poor balance / fall risk and weakness related to hospital stay Certification: Based on the above findings, I certify that this patient is confined to the home and needs intermittent senior living care, physical therapy and/or speech therapy, or continues to need occupational therapy. The patient is under my care, and I have initiated the establishment of the plan of care. The patient will be followed by a physician who will periodically review the plan of care. Time Spent With Patient Time: Total time managing care of this patient today __30__ minutes.
--- NOTE | 2024-03-02 09:10 | HO.NEUROPN_ITS ---
Neurosurgery Operative Note Date of Service: 03/02/24 Narrative: POD: 2 Procedure: L3-L5 Transkambin Interbody Fusion Saloni was seen this morning in bed on . She was seen by Physical therapy who recommended discharge home with at home PT. She states she is still having some difficulty with swallowing pills/food. She has been eating pureed foods and soft foods. She has been up out of bed and ambulated with PT. She was prescribed an at-home walker per their note. She was informed that we will be discharging her home today and was encouraged to get up and walk around her home as much as possible. She is reporting some left-sided leg pain, but this is a pre-surgical finding that is likely flaring up as a result of postoperative inflammation. Afebrile, vital signs are stable. No new neurological deficits. The patient has been up out of bed and ambulated with physical therapy. Her back dressings appear dry without signs of drainage or staining. The patient meets medical criteria to be discharged home today. The plan is to have her crush up the pills that we prescribed, and empty the capsules that we prescribed into soft foods / pureed foods. She is already called her surgical first assistant and will be following up with them regarding her Schatzki ring. She understands she will need to go to a durable medical equipment pharmacy to pick[employer] her walker. She is agreeable to being discharged. I will complete a ooin-ax-szsq encounter for so she can have at-home physical therapy. Adolfo Monet MD,PhD [facility]
[2024-03-02] MEDS: Gabapentin 300 MG CAPSULE PO (09:49)
[2024-03-02] MEDS: oxyCODONE HCl Immed Release 5 MG TABLET PO (12:32)
== END 2024-03-02 13:46 | disposition home health service (06) | DRG 460 ==
LOC: HO.SSS 07:08 → HO.SSSA 07:13 → HO.S3 12:35
PROVIDERS: Neurological Surgery; Admitting Provider Physician Assistant; PCP Family Medicine; Visit Provider Physician Assistant
PROC: 0SG10A0 Fusion of 2 or more Lumbar Vertebral Joints with Interbody Fusion Device, Anterior Approach, Anterior Column, Open Approach (ICD-10-PCS; principal; 2024-02-29 09:00)
DX: M43.16 Spondylolisthesis, lumbar region (principal); J44.9 Chronic obstructive pulmonary disease, unspecified; Z87.891 Personal history of nicotine dependence; Z79.899 Other long term (current) drug therapy
CPT/HCPCS: 71046; 72110; 86850; 86900; 86901; 94640; 97116; 97162; C1713; C1889; C9290; J0131; J0665; J0690; J1170; J1885; J2250; J2405; J2704; J3010; L8699

== ENCOUNTER → 2024-02-29 07:08 | Outpatient (BNV) | payer MEDICARE, SELFPAY | PROVIDERS: Admitting Provider Physician Assistant; PCP Family Medicine; Visit Provider Neurological Surgery | DX: M43.16 Spondylolisthesis, lumbar region (principal); M48.062 Spinal stenosis, lumbar region with neurogenic claudication; Z48.89 Encounter for other specified surgical aftercare | CPT/HCPCS: 20936; 22558; 22585; 22612; 22614; 22840; 22853; 63056; 63057; 99024; 99499; G0180 ==

== ENCOUNTER 2024-03-21 14:16 | Outpatient (AMB) | payer MEDICARE, SELFPAY ==
--- NOTE | 2024-03-21 14:24 | A.SPINEOV_ITS ---
Intake Visit Reasons: 1st post op Intake Note: Ms. Ricks is here today for her 1st post-op appointment. [employer] Required: No Allergies Seasonal Allergies Allergy (Intermediate, Verified 02/29/24 07:26) hayfever symptoms Sulfa (Sulfonamide Antibiotics) Allergy (Intermediate, Verified 02/29/24 07:26) Rash Assessment & Plan Assessment & Plan (1) S/P lumbar fusion: Code(s): Z98.1 - Arthrodesis status Category: Surgical Plan Saloni comes in today for her 1st postoperative visit. She reports that she still has been in quite a bit of pain since her surgery. She is accompanied by her significant other states she has been having more better days than she was previously. She denies any radicular pain, but does state that she feels her left leg is weak over the left quadricep/knee. She was informed this is likely secondary to the surgical approach and will subside time. I again explained her surgery to her on the spine model in office, and tried to further educate the patient about postoperative healing course. She asked several questions regarding her surgery and healing progress all of which I answered to the best of my ability. No new neurological deficits. The patient is able to ambulate well and rises from seated position without difficulty. Incision sites appear closed and well healing. No active drainage. I refilled the patient's medications per her request. She was out of hydroxyzine, muscle relaxers, and Dilaudid. She was informed that we will only continue to prescribe narcotic pain medication for roughly 1 month after surgery. She understands, and will be scheduled for a subsequent follow-up visit in 6 weeks. She will need a set of X-rays at this visit. Medications: Changed From hydromorphone (Dilaudid) orally; 1/2 tablets by mouth every 6 to 8 hours PRN; Partial Fill upon patient request. 20 tabs 0RF pain To hydromorphone (Dilaudid) orally; 1/2 tablet by mouth every 8 hours PRN; Partial Fill upon patient request. 14 tabs 0RF pain Refilled hydroxyzine HCl 25 mg PO TID 30 tabs 2RF gabapentin 600 mg PO TID 60 tabs 3RF cyclobenzaprine 5 mg PO TID PRN 30 tabs 0RF muscle spasms Coding Level of Care Code Global (12552) Diagnoses S/P lumbar fusion Z98.1
== END 2024-03-21 14:45 | disposition home or self-care (01) ==
PROVIDERS: PCP Family Medicine; Visit Provider Physician Assistant
DX: Z98.1 Arthrodesis status (principal)
CPT/HCPCS: 99024

== ENCOUNTER → 2024-03-21 14:16 | Outpatient (BNVA) | payer MEDICARE, SELFPAY | PROVIDERS: PCP Family Medicine; Visit Provider Physician Assistant | DX: Z98.1 Arthrodesis status (principal) | CPT/HCPCS: 99212 ==

== ENCOUNTER 2024-05-02 11:01 | Outpatient (REF) | payer MEDICARE, SELFPAY ==
--- NOTE | ~2024-05-02 | XR_ITS ---
EXAMINATION: XR LUMBOSACRAL SPINE WITH OBLIQUES CLINICAL INFORMATION: Arthrodesis status. COMPARISON: 03/01/2024 x-ray lumbar spine, 02/29/2024 fluoroscopy in OR. TECHNIQUE: Four views of the lumbar spine. FINDINGS: Surgical clips in the right upper quadrant. Degenerative changes in the bilateral sacroiliac joints. Mild levoscoliosis of the lumbar spine. Redemonstration of posterior fixation hardware with bilateral rods, pedicular screws and disc spacers spanning L3-L4-L5 levels. Hardware appears intact. Mild grade 1 anterolisthesis of L3 on L4 with flexion and extension. Grade 1 anterolisthesis of L4 on L5 with flexion and extension. Advanced degenerative changes at L5-S1 with loss of disc space height and hypertrophic change. XR/XR lumbar spine 4V min IMPRESSION: 1. Redemonstration of posterior fixation hardware spanning L3-L4-L5 levels. Hardware appears intact. 2. Mild grade 1 anterolisthesis of L3 on L4 with flexion and extension. Grade 1 anterolisthesis of L4 on L5 with flexion and extension. 3. Advanced degenerative changes at L5-S1.
== END 2024-05-02 11:02 | disposition home or self-care (01) ==
LOC: HO.HOSX 11:01
PROVIDERS: Visit Provider Physician Assistant
DX: Z98.1 Arthrodesis status (principal); M51.37 Other intervertebral disc degeneration, lumbosacral region
CPT/HCPCS: 72110; 99212

== ENCOUNTER 2024-05-02 12:50 | Outpatient (AMB) | payer MEDICARE, SELFPAY ==
--- NOTE | 2024-05-02 12:52 | HO.SPINEOV ---
Intake Visit Reasons: 2nd post op with Xrays Intake Note: Ms. Ricks is here today for her 2nd post-op visit. 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 Thankfully, she reports resolution of the bulk of her symptoms since her surgery. She still has some pain with ambulation but states it has largely attributed to her knee replacement and feels it is mostly muscular. This is likely due to her inability to mobilize after surgery as she had quite a bit of pain. We attempted to control his pain to the best of our ability, however she had some difficulties. Thankfully Saloni has been mobilizing more, walking with the assistance of a cane, and completing her ADLs without issue now. No new neurological deficits. The patient ambulates well and rises from a seated position without difficulty. She uses the assistance of a cane. Her incision sites are closed and well healed. I would like to follow up with Saloni again in 1 month for her final (3rd) postoperative visit. Adolfo Monet MD,PhD [facility] Orders: Orders XR lumbar spine 4V min Today Z98.1 - Arthrodesis status Coding Level of Care Code Global (09830) Diagnoses S/P lumbar fusion Z98.1
== END 2024-05-02 13:43 | disposition home or self-care (01) ==
PROVIDERS: PCP Family Medicine; Visit Provider Physician Assistant
DX: Z98.1 Arthrodesis status (principal)
CPT/HCPCS: 99024

== ENCOUNTER 2024-06-27 12:43 | Outpatient (AMB) | payer MEDICARE, SELFPAY ==
--- NOTE | 2024-06-27 12:31 | HO.SPINEOV ---
Intake Visit Reasons: 3rd post op Intake Note: Ms. Ricks is here today for her 3rd post-op visit. 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 Saloni is a pleasant 69 year old female who comes in today for a subsequent follow up visit after a L3-5 OLLIF completed on 02/29/24. Initially she presented with low back pain radiating down the right leg. Her symptoms initially were much improved after surgery, however she states that she now has quite a bit of residual pain that she is unable to get rid of. She does go for walks daily, and attempts to remain active. She feels she has reduced mobility/weakness in her left lower extremity, and she has pain into her bilateral groin area. She places her hand over her anterior left thigh when describing the weakness / postsurgical pain. On examination the patient has 5/5 strength in her bilateral lower extremities. She is able to stand on her toes and heels without issue. She is able to ambulate well without any issues rising from a seated position. Her incision sites are closed and well healed without any palpable edema. I would like to seeing Saloni for a course of physical therapy to help her with mobility and strength training. I would also like to obtain a CT scan of the lumbar spine to ensure exact placement of her surgical instrumentation. Her previous x-ray imaging did look good, however due to her continued pain complaints I want to make sure that nothing has moved since surgery. She will be going to physical therapy and obtaining her CT scan at outside institutions as she reports she does not live locally. She will drop off the CT scan disc for me to review. Adolfo Monet MD,PhD [facility] Orders: Orders PT Evaluation and Treatment Today Z98.1 - Arthrodesis status CT lumbar spine wo IV con Today Z98.1 - Arthrodesis status Coding Level of Care Code Global (22766) Diagnoses S/P lumbar fusion Z98.1
== END 2024-06-27 13:29 | disposition home or self-care (01) ==
PROVIDERS: PCP Family Medicine; Visit Provider Physician Assistant
DX: Z98.1 Arthrodesis status (principal)
CPT/HCPCS: 99213

== ENCOUNTER → 2024-06-27 12:43 | Outpatient (BNVA) | payer MEDICARE, SELFPAY | PROVIDERS: PCP Family Medicine; Visit Provider Physician Assistant | DX: Z48.89 Encounter for other specified surgical aftercare (principal); Z98.1 Arthrodesis status | CPT/HCPCS: 99212 ==